=== PATIENT | female | born 1995 | race African-American/Black ===

== ENCOUNTER 2017-04-03 16:51 | Emergency (ER) | payer MEDICAID ==
[~2017-04-03] VITALS: Ht 170.2 cm; Wt 74.4 kg
[~2017-04-03 16:51] MED LIST: PREN-96 PO
[2017-04-03 17:35] LABS: White Blood Cell 10.1 10^3/uL (4.4-10.8)
[2017-04-03 17:36] LABS: Basophils # (auto) 0 uL; Basophils % (auto) 0.4 % (0.0-2.0); Eosinophils # (auto) 0 uL; Eosinophils % (auto) 0.3 % (0.0-7.0); Hematocrit 42.3 % (36.0-46.0); Hemoglobin 14.5 g/dL (12.2-16.2); Lymphocytes # (auto) 2.2 uL; Lymphocytes % (auto) 22.1 % (10.0-50.0); Mean Corpuscular Hemoglobin 28.1 pg (28.0-32.0); Mean Corpuscular Hgb Conc. 34.2 g/dL (32.0-36.0); Mean Corpuscular Volume 82.3 fL (80.0-100.0); Monocytes # (auto) 0.8 uL; Monocytes % (auto) 7.6 % (0.0-12.0); Neutrophils # (auto) 7.1 uL; Neutrophils % (auto) 69.6 % (37.0-80.0); Nucleated Red Blood Cells % 0.1 %; Platelet Count (auto) 344 10^3/uL (140-450); Red Blood Cells 5.14 10^6/uL (4.0-5.20); Red Cell Distribution Width 14.1 % (11.8-14.3)
[2017-04-03 17:50] LABS: Alanine Aminotransferase 26 U/L (13-56); Albumin 4.4 g/dL (3.4-5.0); Alkaline Phosphatase 101 U/L (45-117); Anion Gap 7 (5-15); Aspartate Aminotransferase 18 U/L (15-37); BUN/Creatinine Ratio 10.1; Bilirubin, Total 0.9 mg/dL (0.2-1.0); Blood Urea Nitrogen 8 mg/dL (7-18); Calcium 9.4 mg/dL (8.5-10.1); Carbon Dioxide 28 mmol/L (21-32); Chloride 102 mmol/L (98-107); GFR African American 118 mL/min; GFR Non-African American 98 mL/min; Glucose 102 mg/dL (74-106); Magnesium 2.1 mg/dL (1.6-2.6); Potassium 3.9 mmol/L (3.5-5.1); Sodium 137 mmol/L (136-145); Total Protein 8.7 g/dL (6.4-8.2)
[2017-04-03] MEDS ORDERED: IOHEXOL 350 MG/ML 100ML IJ ONE (23:22)
[2017-04-03] MEDS ORDERED: VANCOMYCIN 1GM/250ML 250 ML IV ONE (23:30)
[2017-04-03] MEDS ORDERED: cefTRIAXone 1GM/50ML D5W 50 ML IV ONE (23:30)
[2017-04-03] MEDS ORDERED: SODIUM CHLORIDE 0.9% 1,000 ML IV ONE (23:30)
[2017-04-04 05:14] LABS: Alcohol, Urine < 3.0 mg/dL (0-5); Amphetamine Screen, Urine NEGATIVE (NEGATIVE); Barbiturate Scree,Urine NEGATIVE (NEGATIVE); Benzodiazephine Screen, Urine NEGATIVE (NEGATIVE); Cannabinoid Screen, Urine POSITIVE (NEGATIVE); Cocaine Screen, Urine NEGATIVE (NEGATIVE); Opiate Scree,Urine POSITIVE (NEGATIVE); Phencyclidine Screen, Urine NEGATIVE (NEGATIVE)
[2017-04-04 07:21] VITALS: BP 124/56
== END 2017-04-04 07:38 | disposition short-term general hospital (02) ==
LOC: ER 17:00
DX: S61.432A Puncture wound without foreign body of left hand, initial encounter (principal); R07.9 Chest pain, unspecified; J98.2 Interstitial emphysema; L03.114 Cellulitis of left upper limb; W01.0XXA Fall on same level from slipping, tripping and stumbling without subsequent striking against object, initial encounter; Y93.89 Activity, other specified; Y92.89 Other specified places as the place of occurrence of the external cause; Y99.8 Other external cause status
CPT/HCPCS: 36415; 71020; 71260; 73130; 80053; 80307; 81025; 83735; 84484; 84702; 85025; 93005; 96361; 96365; 96367; 99285; J0696; J3370; J7030; Q9967

== ENCOUNTER 2018-12-15 22:05 | Inpatient (IN) | payer MEDICAID ==
[~2018-12-15] VITALS: Ht 172.7 cm; Wt 81.6 kg
[2018-12-16] MEDS ORDERED: BUTORPHANOL TARTRATE 2 MG/1 ML VIAL IM ONE (00:30)
[2018-12-16] MEDS ORDERED: LACTATED RINGER'S 1,000 ML IV SCH (00:33)
[2018-12-16] MEDS ORDERED: LACT. RINGERS/OXYTOCIN 20UNITS 1,000 ML IV SCH (00:33)
[2018-12-16] MEDS ORDERED: CARBOPROST TROMETHAMINE 250 MCG/1ML VIAL IM PRN (00:45)
[2018-12-16] MEDS ORDERED: DERMOPLAST 60ML BOTTLE TOP PRN (00:45)
[2018-12-16] MEDS ORDERED: LIDOCAINE 2%HCL (LOCAL ANESTH.) INJ 20ML MDV ID ONE (00:45)
[2018-12-16] MEDS ORDERED: METHYLERGONOVINE MALEATE 0.2 MG/ML AMP IM PRN (00:45)
[2018-12-16] MEDS ORDERED: PHISODERM TOP SOLN 240ML BTL TOP PRN (00:45)
[2018-12-16] MEDS ORDERED: WITCH HAZEL-GLYCERIN PAD TOP PRN (00:45)
[2018-12-16] MEDS ORDERED: LIDOCAINE 1% (LOCAL ANESTH.) PF 5ml SDV IJ ONE (00:45)
[2018-12-16] MEDS ORDERED: IBUPROFEN 600 MG TAB PO ONE (01:34)
--- NOTE | 2018-12-16 01:53 | NUR ---
Bottle-feeding Education: Patient encouraged to breastfeed. Benefits of and the risk of providing formula to was discussed. Patient verbalized understanding of the benefits and is aware of risk and insists on bottle-feeding. Formula provided and instruction on formula preperation from the [facility] booklet reviewed with patient.
[2018-12-16 02:54] LABS: Basophils # (auto) 0 uL; Basophils % (auto) 0.1 % (0.0-2.0); Eosinophils # (auto) 0 uL; Eosinophils % (auto) 0.1 % (0.0-7.0); Hematocrit 32.2 % (36.0-46.0); Hemoglobin 10.9 g/dL (12.2-16.2); Lymphocytes # (auto) 1.4 uL; Lymphocytes % (auto) 10.4 % (10.0-50.0); Mean Corpuscular Hemoglobin 27.4 pg (28.0-32.0); Mean Corpuscular Hgb Conc. 33.7 g/dL (32.0-36.0); Mean Corpuscular Volume 81.2 fL (80.0-100.0); Monocytes # (auto) 0.7 uL; Monocytes % (auto) 4.7 % (0.0-12.0); Neutrophils # (auto) 11.6 uL; Neutrophils % (auto) 84.7 % (37.0-80.0); Nucleated Red Blood Cells % 0.1 %; Platelet Count (auto) 253 10^3/uL (140-450); Red Blood Cells 3.97 10^6/uL (4.0-5.20); Red Cell Distribution Width 13.8 % (11.8-14.3); White Blood Cell 13.7 10^3/uL (4.4-10.8)
[2018-12-16 03:07] LABS: INR < 0.93 (0.9-1.15); Partial Thromboplastin Time 26.5 sec (23.64-32.05)
[2018-12-16 03:13] LABS: Albumin 2.6 g/dL (3.4-5.0); BUN/Creatinine Ratio 8.5; Calcium 8.7 mg/dL (8.5-10.1); Potassium 3.9 mmol/L (3.5-5.1)
[2018-12-16 03:16] LABS: Bilirubin, Total 0.2 mg/dL (0.2-1.0); Total Protein 6.4 g/dL (6.4-8.2)
[2018-12-16 03:35] LABS: Urine Bacteria FEW /hpf (None Seen); Urine Blood 2+ /uL (Negative); Urine Mucus FEW (None Seen); Urine Specific Gravity 1.019 (1.001-1.035); Urine WBC 11 /hpf (0 - 5)
[2018-12-16] MEDS: ACETAMINOPHEN 325 MG TAB PO PRN ×3 (03:36→16:00)
[2018-12-16 03:37] LABS: Alcohol, Urine < 3.0 mg/dL (0-5); Amphetamine Screen, Urine NEGATIVE (NEGATIVE); Barbiturate Scree,Urine NEGATIVE (NEGATIVE); Benzodiazephine Screen, Urine NEGATIVE (NEGATIVE); Cannabinoid Screen, Urine POSITIVE (NEGATIVE); Opiate Scree,Urine NEGATIVE (NEGATIVE)
[2018-12-16 03:39] LABS: Cocaine Screen, Urine NEGATIVE (NEGATIVE); Phencyclidine Screen, Urine NEGATIVE (NEGATIVE)
--- NOTE | 2018-12-16 04:00 | NUR ---
Ambulation: Patient OOB with standby assistance by RN. Patient ambulated to bathroom with steady gait. Patient able to void 600ML without difficulty. Pericare teaching provided with returned demonstration by patient. Clean gown provided and bed linen changed. Patient ambulated back to bed with steady gait and no distress noted.
--- NOTE | 2018-12-16 06:08 | NUR ---
Report received from Bea Goins RN and Lino Walls RN on stable pt. Assumed care. Addendum: 12/16/18 at 0620 by Susanna Florez RN Amended: Links added.
[2018-12-16 06:32] VITALS: BP 126/69
[2018-12-16] MEDS: IBUPROFEN 600 MG TAB PO PRN ×3 (07:12→23:08)
[2018-12-16 10:50] VITALS: BP 112/62
--- NOTE | 2018-12-16 12:20 | NUR ---
IV removal IV DC'd with sterile technique, catheter fully intact. Pressure dressing applied to site. Patient tolerated procedure well.
[2018-12-16 14:58] VITALS: BP 122/71
--- NOTE | 2018-12-16 15:50 | NUR ---
Yuri from child protective services social worker at bedside to discuss + UDS with pt. Yuri states that pt is cleared.
--- NOTE | 2018-12-16 16:17 | NUR ---
Pt is an alert and oriented female that resides with her mother, Monika, and her 3 yo daughter. Pt attends school and will be bottle feeding the baby. FOB is supportive as well as involved with baby's care. All needs are met for pt and baby and also has a car seat. SS consult because pt's UDS positive for THC but baby was negative. Pt admitted to use and stated she used because of anxiety and stress levels. Counseled pt on effects of drug usage on baby and being referred to CPS. CPS referral to be made prior to discharge on tomorrow. Addendum: 12/16/18 at 1636 by IRENE HERNANDES Amended: Links added.
--- NOTE | 2018-12-16 17:36 | NUR ---
Pt rounds completed- Pt given towels, washcloths, and toiletries to shower. Pt denies dizziness or pain. Pt stable, no signs of distress noted.
--- NOTE | 2018-12-16 18:20 | NUR ---
Report given to Danitza Scott RN on stable pt. Relinquished care. Addendum: 12/16/18 at 1832 by uSsanna Florez RN Amended: Links added.
[2018-12-16 19:00] VITALS: BP 121/63
[2018-12-16 23:00] VITALS: BP 123/58
[2018-12-17 02:50] VITALS: BP 127/60
[2018-12-17 05:07] LABS: RPR Non Reactive (Non Reactive)
[2018-12-17 07:12] VITALS: BP 118/60
[2018-12-17] MEDS: IBUPROFEN 600 MG TAB PO PRN (08:30)
--- NOTE | 2018-12-17 09:00 | NUR ---
Discharge: Discharge instructions given as ordered. Pt encouraged to follow up with [facility] as instructed. All questions and concerns addressed. Patient verbalized understanding. Medication reconciliation completed and copy given to patient. All required/requested vaccines given and copies of vaccinations given to patient. Patient encouraged to prepare to depart unit.
--- NOTE | 2018-12-17 09:00 | NUR ---
Discharge: Discharge instructions given to mother of baby as ordered. Copies of and hearing screening, along with vaccination record given to mother. Mother encouraged to follow up with G[facility] Machine Operator of choice and to give envelope with infants information to torpedo man at 1st office visit. All questions and concerns addressed. Mother of baby verbalized understanding and agreed to comply. Mother of baby encouraged to prepare for departure and notify RN ready to leave room for ID band removal/verification and car seat check.
--- NOTE | 2018-12-17 09:15 | NUR ---
LIVER TRIMMER JEANINE WAS CALLED AND CLARRIFIED WHAT WAS WRITTEN IN HER PROGRESS NOTES ABOUT THE PATIENT BEING REFERRED TO CPD BEFORE ADMISSION AN DSHE SAID YES SHE WILL BE REFERRED TO CPS BUT SHE IS ALRIGHT TO GO HOME NOW WHEN SHE IS READY TO BE DISCHARGED,
[2018-12-17] MEDS ORDERED: DERMOPLAST 60ML BOTTLE TOP ONE (09:25)
--- NOTE | 2018-12-17 09:40 | NUR ---
Discharge: Patient taken to vehicle ambulatory with all personal belongings, accompanied by staff and family member. No distress noted at time of departure, no adverse changes in status since initial assessment.
--- NOTE | 2018-12-17 16:06 | NUR ---
Received referral to contact CPS due to pt's usage of THC. Pt is a mom who delivered a baby girl on 12/15/18. Mom was positive for THC. Her baby was not. Called CPS and spoke with Janette [facility] nephrology social worker who took the report. ([phone]). the report [id number]. Report was faxed to CPS [phone].
== END 2018-12-17 09:40 | disposition home or self-care (01) | DRG 560 ==
LOC: LDRP 22:05 → OBSVTOIN 22:05 → LDRP 12-16 03:13
PROVIDERS: ADMIT Obstetrics & Gynecology; ATTEND Obstetrics & Gynecology
PROC: 10E0XZZ Delivery of Products of Conception, External Approach (ICD-10-PCS; principal; 2018-12-16)
PROC: 0W8NXZZ Division of Female Perineum, External Approach (ICD-10-PCS; 2018-12-16)
DX: O69.81X0 Labor and delivery complicated by cord around neck, without compression, not applicable or unspecified (principal); Z37.0 Single live birth; Z3A.40 40 weeks gestation of pregnancy
CPT/HCPCS: 36415; 59025; 59409; 76818; 80053; 80307; 81001; 81002; 84112; 85025; 85610; 85730; 86592; 86850; 86900; 86901; 96361; 96366; G0378; J2590

== ENCOUNTER 2022-07-28 07:28 | Emergency (ER) | payer MEDICAID, OTHER ==
[~2022-07-28] VITALS: Ht 172.7 cm; Wt 100.7 kg
[2022-07-28 08:32] VITALS: BP 149/95
[2022-07-28] MEDS ORDERED: KETOROLAC TROMETH 30 MG/ML 1ML VIAL IM ONE (09:00)
[2022-07-28] MEDS ORDERED: IBUP600T28 PO (10:12)
[2022-07-28] MEDS ORDERED: CYCL-839 PO (10:12)
== END 2022-07-28 10:14 | disposition home or self-care (01) ==
LOC: ER 07:28
DX: S63.592A Other specified sprain of left wrist, initial encounter (principal); S16.1XXA Strain of muscle, fascia and tendon at neck level, initial encounter; S46.912A Strain of unspecified muscle, fascia and tendon at shoulder and upper arm level, left arm, initial encounter; V43.52XA Car driver injured in collision with other type car in traffic accident, initial encounter; Y93.89 Activity, other specified; Y92.410 Unspecified street and highway as the place of occurrence of the external cause; Y99.8 Other external cause status
CPT/HCPCS: 72040; 73030; 73110; 96372; 99284; J1885

== ENCOUNTER 2025-03-10 08:09 | Emergency (ER) | payer MEDICAID, OTHER ==
[~2025-03-10] VITALS: Ht 172.7 cm; Wt 90.3 kg
[~2025-03-10 08:09] MED LIST changes: +CYCL-839 PO; +IBUP1TAB5 PO
[2025-03-10 09:10] VITALS: BP 131/89; PULSE 58; RESP 18; TEMP 97.7; O2SAT 100
--- NOTE | 2025-03-10 09:19 | ED.PDOC ---
Foreign Body HPI Comments A 29 YEAR OLD FEMALE PRESENTS TO THE ED WITH COMPLAINT OF A FOREIGN BODY IN HER RIGHT EAR. PER PATIENT, THE COTTON TIP FROM A SWAB DETACHED AND BECAME LODGED IN HER EAR CANAL, CAUSING DISCOMFORT. PATIENT DENIES ANY HEARING LOSS OR EAR DRAINAGE. PATIENT DENIES FEVER, CHILLS, SHORTNESS OF BREATH, CHEST PAIN, ABDOMINAL PAIN, NAUSEA, VOMITING, HEADACHE, OR OTHER COMPLAINTS. NO OTHER SYMPTOMS OR MODIFYING FACTORS AT THIS TIME. PATIENT IS ALERT, ORIENTED X 4, AND HAS STEADY GAIT. Chief Complaint: Foreign Body Time Seen by MD: 09:00 Primary Care Provider: UNK History of Present Illness: Nurses Notes, Medications, Allergies Allergies: Coded Allergies: NO KNOWN ALLERGIES (Unverified , 06/10/15) Home Meds Active Scripts Cyclobenzaprine Hcl (Cyclobenzaprine Hcl) 10 Mg Tab, 10 MG PO TID, #12 TAB 0 Refills Prov:JAREN MEDINA [facility] 07/28/22 Ibuprofen Micronized (Ibuprofen) 600 Mg Tab, 600 MG PO [id number] PRN, #30 TAB 0 Refills Prov:JAREN MEDINA [facility] 07/28/22 Reported Medications Vit W/ Ferrous Fumara ( One Daily) Daily Tab, 1 TAB PO DAILY, #90 TAB 3 Refills 06/10/15 Information Source: Patient Mode of Arrival: Ambulatory Timing: Hours Duration: Since onset Severity: Mild Prehospital treatment: None Location: Right, Ear Context: Accidental Foreign Body: Other Removal: Was attempted, Was not successful Associated signs and symptoms: None Past Medical History PAST MEDICAL HISTORY: Denies Surgical History: Denies all surgeries PUBLIC FINANCE SPECIALIST History: No Pertinent PUBLIC FINANCE SPECIALIST History Family History Family History: Unobtainable Social History Smoker: Non-Smoker Alcohol: Denies ETOH Use Drugs: Denies Drug Use Lives In: Home Constitutional: denies: chills, diaphoresis, fatigue, fever, malaise, sweats, weakness, others EENTM: reports: others (FB OF RIGHT EAR ); denies: blurred vision, double vision, ear bleeding, ear discharge, ear drainage, ear pain, ear ringing, eye pain, eye redness, hearing loss, mouth pain, mouth swelling, nasal discharge, nose bleeding, nose congestion, nose pain, photophobia, tearing, throat pain, throat swelling, voice changes Respiratory: denies: cough, hemoptysis, orthopnea, SOB at rest, shortness of breath, SOB with excertion, stridor, wheezing, others Cardiovascular: denies: chest pain, dizzy spells, diaphoresis, Dyspnea on exertion, edema, irregular heart beat, left arm pain, lightheadedness, palpitations, PND, syncope, others Gastrointestinal: denies: abdomen distended, abdominal pain, blood streaked bowels, constipated, diarrhea, dysphagia, difficulty swallowing, hematemesis, melena, nausea, poor appetite, poor fluid intake, rectal bleeding, rectal pain, vomiting, others Genitourinary: denies: abnormal vagina bleeding, burning, dyspareunia, dysuria, flank pain, frequency, hematuria, incontinence, pain, , vagina discharge, urgency, others Neurological: denies: dizziness, fainting, headache, left sided numbness, left sided weakness, numbness, paresthesia, pre-existing deficit, right sided numbn ess, right sided weakness, seizure, speech problems, tingling, tremors, weakness, others Musculoskeletal: denies: back pain, gout, joint pain, joint swelling, muscle pain, muscle stiffness, neck pain, others Integumetry: denies: bruises, change in color, change in hair/nails, dryness, laceration, lesions, lumps, rash, wounds, others Allergic/Immunocompromised: denies: Difficulty Healing, Frequent Infections, Hives, Itching, others Hematologic/Lymphatic: denies: anemia, blood clots, easy bleeding, easy bruising, swollen glands, others Endocrine: denies: excessive hunger, excessive sweating, excessive thirst, excessive urination, flushing, intolerance to cold, intolerance to heat, unexplained weight gain, unexplained weight loss, others Psychiatric: denies: anxiety, bipolar disorder, depression, hopeless, panic disorder, schizophrenia, sleepless, suicidal, others All Other Systems: Reviewed and Negative Physical Exam General Appearance: No Apparent Distress, Normal HEENT: PERRL/EOMI, Pharynx Normal, TMs Normal, Other (+FB OF RIGHT EAR, NO BLEEDING AND BLOOD CLOTS. ) Neck: Full Range of Motion, Non-Tender, Normal, Normal Inspection Respiratory: Chest Non-Tender, Lungs Clear, No Accessory Muscle Use, No Respiratory Distress, Normal Breath Sounds Cardiovascular: No Edema, No JVD, No Murmur, No Gallop, Normal Peripheral Pulses, Regular Rate/Rhythm Breast Exam: Deferred Gastrointestinal: No Organomegaly, Non Tender, No Pulsatile Mass, Normal Bowel Sounds, Soft Genitalia: Deferred Pelvic: Deferred Rectal: Deferred Extremities: No calf tenderness, Normal capillary refill, Normal inspection, Normal range of motion, Non-tender, No pedal edema Musculoskeletal : Apperance: Normal Neurologic: Alert, it security engineer II-XII nml as Tested, No Motor Deficits, Normal Affect, Normal Mood, No Sensory Deficits Cerebellar Function: Normal Reflexes: Normal Skin: Dry, Normal Color, Warm Peripheral Pulses: 2+ carotid (R), 2+ carotid (L) Lymphatic: No Adenopathy Was a procedure done? Was a procedure done?: Yes Sedation Sedation?: No Foreign Body Removal Foreign body in: Ear Prep: Prep, Saline (WARMED ), Irrigation (RIGHT EAR WITH WARM WATER IRRIGUATION. ) Procedure: Identified (RIGHT INNER EAR ), Removed (FB OF RIGHT EAR ) Informed consent obtained: No Risks/benefits/alt described: Yes UTO Consent FOREIGN BODY REMOVED WITH WARM WATER IRRIGATIONARM WATER IRRGUTION FB Differential Dx Differential Diagnosis: Foreign Body X-Ray, Labs, Meds, VS Vital Signs Date Time Temp Pulse Resp B/P (MAP) Pulse Ox O2 Delivery O2 Flow Rate FiO2 03/10/25 09:10 97.7 58 18 131/89 (103) 100 97.7 03/10/25 09:10 58 18 100 Room Air 03/10/25 08:13 97.7 58 18 131/89 100 97.7 X-Ray, Labs, Meds, VS Comment EXTERNAL MEDICAL RECORDS REVIEWED: [NONE] INDEPENDENT HISTORIANS: [NONE] SOCIAL DETERMINANTS OF HEALTH: [NONE] LABS ORDERED: NONE REVIEWED AND INTERPRETED RESULTS: NONE IMAGING ORDERED: NONE TREATMENTS ORDERED: FB REMOVED OF RIGHT EAR PROCEDURES PERFORMED: NONE CRITICAL CARE TIME: NONE I HAVE DISCUSSED THE PATIENT WITH THE ATTENDING PHYSICIAN, DR. CAR, SHE AGREES WITH THE PATIENT'S PLAN OF CARE AND DISPOSITION. BASED ON HISTORY OF PRESENT ILLNESS, AND PHYSICAL EXAM, PATIENT WILL BE DISCHARGED HOME. FOREIGN BODY WAS SUCCESSFULLY REMOVED FROM RIGHT SIDED EAR USING WARM WAS TO IRRIGATE OBJECT OUT AND PATIENT HAD IMMEDIATE RELIEF. SHARED DECISION MAKING: DISCUSSED WITH PATIENT THAT THEIR WORKUP WAS NORMAL. PATIENT INSTRUCTED TO FOLLOW UP WITH PRIMARY CARE PROVIDER IN 1-2 DAYS FOR RE- EVALUATION OF SYMPTOMS. PATIENT VERBALIZES UNDERSTANDING TO RETURN TO ED FOR NEW OR WORSENING SYMPTOMS OR IF FOLLOW UP WITH PCP CANNOT BE OBTAINED. PATIENT FEELS COMFORTABLE GOING HOME AT THIS TIME. ALL QUESTIONS ADDRESSED AT TIME OF DISCHARGE. Time of 1ST Reevaluation: :44 Reevaluation 1ST: Improved Patient Education/Counseling: Diagnosis, Treatment, Prognosis Family Education/Counseling: Diagnosis, Treatment, No Family Present Medical Screening: No EMC Exist At This Time Departure 1 Departure Time of Disposition: :44 Impression: Primary Impression: Foreign body in right ear Qualified Codes: T16.1XXA - Foreign body in right ear, initial encounter Additional Impression: History of retained foreign body fully removed Disposition: 01 HOME / SELF CARE / HOMELESS Condition: Stable Additional Instructions: F/U PCP IN 2 DAYS RECHECK. IF CONDITION BECOME WORSE, RETURN TO ED CASA. Discharged With: Self Critical Care Note Critical Care Time?: No Stability Stability form required: No I personally scribed for VICENTE AMAYA ([email or web address]) on 03/10/25 at 09:19. Electronically submitted by Shawnee Carty ([place]). VICENTE AMAYA Mar 10, 2025 09:19
== END 2025-03-10 09:21 | disposition home or self-care (01) ==
LOC: ER 08:09
DX: T16.1XXA Foreign body in right ear, initial encounter (principal); Z87.821 Personal history of retained foreign body fully removed; W44.9XXA Unspecified foreign body entering into or through a natural orifice, initial encounter; Y93.89 Activity, other specified; Y92.89 Other specified places as the place of occurrence of the external cause; Y99.8 Other external cause status